=== PATIENT | male | born 1950 | race Caucasian/White ===

== ENCOUNTER 2021-03-05 21:05 | Observation (INO) | payer MEDICARE, BC ==
[~2021-03-05] VITALS: Ht 172.7 cm; Wt 92.8 kg
[~2021-03-05 21:05] MED LIST: ACYCLOVIR200 MG PO; BAYER CHEWABLE81 MG PO; CRESTOR40 MG PO; GABAPENTIN300 MG PO; LEVOTHYROXINE125 MC1 PO; NITROSTAT0.4 MG PO; OXYCODONE HCL5 MG PO; SENNA LAX8.6 MG PO; XARELTO10 MG PO
--- OUTSIDE RECORDS SUMMARY | 2021-03-05 21:08 | XMS ---
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 ERoss VISIT COUNT (12 MO.) 1 JAZMINE Morrell TOTAL 1 NOTE: Visits indicate total known visits. ED/UCC VISIT TRACKING (12 MO.) 03/05/2021 21:05 JAZMINE Gonzales OR TYPE: Emergency COMPLAINT: - DIZZINESS INPATIENT VISIT TRACKING (12 MO.) No inpatient visits to display in this time frame [email or web address]
[2021-03-05] MEDS ORDERED: PHENAZOPYRIDIN100 MG PO (21:31)
[2021-03-05] MEDS ORDERED: CEPHALEXIN500 M1 PO (21:31)
--- NOTE | 2021-03-06 01:30 | NUR ---
PT TO ROOM 123 @ 0015 WITH COLD SAW OPERATOR VIA STRETCHER. PT ABLE TO MOVE SELF FROM STRETCHER TO BED. ORDERS RECEIVED. ALERT AND ORIENTED. TELE #5 PLACED. SR. PT DENIES DIZZINESS OR LIGHTHEADEDNESS. RECENT RTK REPLACEMENT (03/04) WITH DR. ANTONY. DRESSING TO RIGHT KNEE INTACT WITH SEROSANG DRAINAGE. ON-Q PUMP IN PLACE AT 6ML/HR. CMS INTACT. TEDS IN PLACE BILAT. ICE TO RIGHT KNEE. PT REPORTS KNEE PAIN IS TOLERABLE. DENIES NAUSEA. PT REQUESTING HOME MEDS FOR URINARY DISCOMFORT. TELEPHONE ORDERS RECEIVED FROM OXANA FREEMAN VERIFIED WITH READ BACK METHOD. 2 PERSON SBA TO BS TO ATTEMPT BM WITH NO SUCCESS. PT DENIES FEELING DIZZY OR LIGHTHEADED WITH TRANSFER. BACK TO BED, SULLY WELL. PT ORIENTED TO ROOM AND NURSE CALL LIGHT. PT VERBALIZES UNDERSTANDING. DENIES FURTHER NEEDS AT THIS TIME. CALL LIGHT IN REACH. BED ALARM FOR SAFETY.
--- NOTE | 2021-03-06 03:02 | NUR ---
PT RESTING IN BED WITH EYES CLOSED. RESPIRATIONS EVEN. TELE #5. SR. HR 60'S.
--- NOTE | 2021-03-06 05:28 | NUR ---
VS AND I &O COMPLETE. SCHEDULED MEDS ADMINISTERED PER EMAR. TELE #5. SR. HR 60'S. PT DENIES FEELING DIZZY OR LIGHTHEADED. REPORTS PAIN IN RIGHT KNEE TOLERABLE. FRESH ICE TO RIGHT KNEE. NO FURTHER NEEDS AT THIS TIME. CALL LIGHT IN REACH.
--- NOTE | 2021-03-06 07:40 | NUR ---
REPORT RECIEVED. PT IN BED. WAKES TO NURSE WALKING IN ROOM. WATER REFRESHED. CALL LIGHT IN REACH. DENEIS NEEDS.
--- NOTE | 2021-03-06 09:02 | NUR ---
THIS MANAGER TECHNICAL SUPPORT GAVE PT TWO ICE PACKS AND SALT WATER TO RINSE MOUTH OUT WITH PER PT REQUEST. PT INDEPENDENT WITH ORAL CARE. CALL LIGHT WITHIN REACH. NO FURTHER NEEDS AT THIS TIME.
--- NOTE | 2021-03-06 09:57 | NUR ---
DR ANTONY IN TO ROUND. DISCUSSED PLAN OF CARE WITH VERBAL ORDERS START KEFLEX 500MG BID, OXYCODONE 5MG Q4P AND SENNO DAILY FOR CONSTIPATION. ORDERS PLACED.
--- NOTE | 2021-03-06 12:00 | NUR ---
PT UP IN CHAIR FOR LUNCH. PT IS STAND BY. NO ASSISTANCE NEEDED. PAIN 1/10 WHILE SITTING. 8/10 WITH ACTIVITY. PT EDUCATED ON PAIN MANAGEMENT. PT AGREEEABLE TO TAKE PAIN MEDS BEFORE NEXT PHYSICAL THERAPY APPOINTMENT. CALL LIGHT IN REACH. WATER REFRESHED.
--- NOTE | 2021-03-06 13:33 | NUR ---
PT UP TO BATHROOM FOR ORAL CARE. PT IS INDEPENDENT WITH FWW. PT IS STEADY AND CONFIDENT WITH TRANSFER AND AMBULATION. PT USED BSC IN BATHROOM AND WILL CALL FOR SBA BACK TO BED. CALL LIGHT WITHIN REACH. NO FURTHER NEEDS AT THIS TIME.
--- NOTE | 2021-03-06 14:19 | NUR ---
PT UP TO BATHROOM TO ATTEMPT TO HAVE BM. PT UNSUCCESSFUL. ABLULATED BACK TO BED. LAYED DOWN AND LIFTED LEG IN BED WITH NO HELP. CALL LIGHT IN REACH. DENEIS NEEDS.
[2021-03-06] MEDS ORDERED: ASPIR-TRIN325 MG PO (14:39)
--- NOTE | 2021-03-06 14:41 | NUR ---
MED REC COMPLETED BY PHARMACY
--- NOTE | 2021-03-06 15:16 | NUR ---
ROUNDED ON PT TO PRE-MEDICATE FOR PHYSICAL THERAPY. DENEIS FURTHER NEEDS. CALL LIGHT IN REACH.
--- NOTE | 2021-03-06 16:40 | NUR ---
Spoke with pt and his exwife, Nova. Pt came to [place] for surgery from [place], [place]. He will stay until he is well enough to drive himself home. He is staying in [facility] guest house. She will assist him as needed and provide his meals and shopping. He has a walker and denies other needs. Pt was working with PT and was able to walk in the [place]. States walk went well when he returned. Plan is home with exwife on dc denies other needs. Pt has a pcp in [facility] Kiesha Ma at [facility].
--- NOTE | 2021-03-06 17:57 | NUR ---
OXANA VELASQUEZ CALLED AND UPDATED ON PT STATUS AND HOW PHYSICAL THERAPY WENT. PHYSICAL THERAPY RECOMENDS PT STAY ONE MORE DAY FOR THERAPY. PA AGREEABLE. ORDER RECEIVED TO ADMISNTER ONE TIME DOSE OF XARELTO FOR TONIGHT. NO OTHERN ORDERS.
--- NOTE | 2021-03-06 19:30 | NUR ---
SHIFT REPORT RECEIVED FROM CHECO MAJOR. PT RESTING IN BED, ON-Q @ 6ML, ACTICOAT INPLACE WITH SHADOWING. NO NEEDS AT THIS TIME. CALL LIGHT IN REACH.
--- NOTE | 2021-03-06 21:14 | NUR ---
@2100 PT CALLED, NEEDED TO USE BATHROOM, SENSE OF URGENCY, USED URNIAL IN BED, HAD INCONT. PRIOR TO THAT. PLAN FOR PT TO USE URINAL DURING NIGHT DUE TO HIS "OLD MAN BLADDER" HE CALLED IT, STREAM STARTS BEFORE HE MAKES IT. UP TO CHAIR AT BEDSIDE, PT DID GET HIMSELF OUT OF BED SLOWLY, MOANING AND GROANING. BED MADE. WANTED TO WALK. AMBULATED SLOWLY WITH FWW FROM ROOM 123, TO ROOM 125 AND BACK TO HIS ROOM. ABLE TO GET SELF BACK INTO BED AND ADJUSTED. PT LIFTED HIS LEG WITH HIS LEFT LEG FOR THE TOWEL ROLL TO BE PLACED UNDER HIS RIGHT ANKLE. PT PRIMARY RN INTO ROOM FOR NIGHT ASSESSMENT. FRESH BAGS OF ICE BROUGHT TO PT, CLEAN GOWN AND DISPOSABLE UNDERWEAR GIVEN PRIOR TO GETTING INTO BED.
--- NOTE | 2021-03-06 21:40 | NUR ---
ASSESSMENT, VS AND I&O COMPLETED. GCS 15, A&O X4. LUNGS CLEAR, HEART TONES REGULAR. SCHEDULED MEDS PROVIDED. IV WNL, CDI, FLUSHED WELL. RIGHT KNEE HAS GENERALIZED EDEMA, NO PAIN AT REST, ACTICOAT ABOUR 50% SHADOWING WITH ABD ON TOP AND AN JAMESON WRAP. ON-Q @ 6ML. CMS INTACT. ABD SOFT, NONTENDER, BOWEL TONES ACTIVE. NO OTHER NEEDS AT THIS TIME. CALL LIGHT IN REACH.
--- NOTE | 2021-03-06 23:07 | NUR ---
pt up to br with rn, large incot. of urine. brief changed, brandy hoschet changed per rn. pt back in bed, ice applied. no further assistance needed at this time.
--- NOTE | 2021-03-07 | NUR ---
PT RESTING IN BED. HR SR @ 69. CALL LIGHT IN REACH.
--- NOTE | 2021-03-07 00:58 | NUR ---
PT CALLS FOR NEW BRIEF. URINAL EMPTIED. HIGH SCHOOL SOCIAL STUDIES TEACHER IN ROOM TO PROVIDE ICE PACKS.
--- NOTE | 2021-03-07 01:06 | NUR ---
PROVIDED PT WITH FRESH ICE PACKS AND WARM BLANKETS. NO FURTHER ASSISTNACE NEEDED AT THIS TIME
--- NOTE | 2021-03-07 02:56 | NUR ---
PT RESTING IN BED. CALL LIGHT IN REACH.
--- NOTE | 2021-03-07 04:30 | NUR ---
TELE BATTERY CHANGED. PT HAS RED AREA ON BOTTOM OF RIGHT HEEL, ALLEVYN APPLIED. IV WNL. PAIN /, DENIES NEED FOR PAIN INTERVENTION. ASSESSMENT COMPLETED. DRESSING UNCHANGED. ON-Q @ 6ML. GENERALIZED EDEMA AT KNEE. URINAL EMPTIED, CLEAR YELLOW OUTPUT. NO OTHER NEEDS. CALL LIGHT IN REACH.
--- NOTE | 2021-03-07 06:28 | NUR ---
VS AND I&O COMPLETED. PT DENIES PAIN AT REST. RIGHT FOOT REPOSITIONED TO FLOAT AT ANKLE. ICE WATER AND TEA PROVIDED.
--- NOTE | 2021-03-07 09:15 | NUR ---
in to check on pt, medications and assessment due. pt alert and oreitned per baseline. reports pain /10, pre-medicatited for PT this am at 1000. pupils ropund and reactive. bt x 4, abd non-tender. denies nausea, vomining, and diarrhea. iv to left AC, leaking. IV removed at this time by MORIAH Sanders.radial and pedial pulses strong and equal bilaterally. right knee surgical site unchanged at this time. pt continues to have on-Q pump in place running 6mL/Hr. no other concerns or requests at this time. bed rails x 2 up. call light in reach.
[2021-03-07] MEDS ORDERED: GABAPENTIN100 MG PO (10:32)
[2021-03-07] MEDS ORDERED: NEURONTIN300 MG PO (10:36)
--- NOTE | 2021-03-07 10:45 | NUR ---
pt up ambulating in hallway with walker with physical therapy at this time.
--- NOTE | 2021-03-07 11:35 | NUR ---
OXANA Godoy in with pt. ON-Q bolus given by PA and then pulled. covered with allyven, abd pressure dressing and wrapped with elias wrapped. pt reports pain after therapy 05/06. dredding to knee remains in tact, to be removed at f/u appt. no other concerns or requests at this time. bed rrails x 2 up, call light in reach.
--- NOTE | 2021-03-07 11:50 | NUR ---
Spoke with Hang. He is walking with PT. States he feels well and is able to walk. Plans on dc to home with exwife today.
--- NOTE | 2021-03-07 12:24 | NUR ---
IN TO CHECK ON PT, THIS NURSE DISCUSSED DISCHARGE INSTRUCTIONS WITH PT. PT VERBALIZED UNDERSTANDING, NO QUESTIONS AT THIS TIME. DRESSING TO PREVIOUS on-q PLACEMENT SITE CHANGED R/T DRESSING SATURATION. VS OBTAINED, WNL. TELE REMOVED. PT SITTING UP IN BED EATING LUNCH AT THIS TIME. FAMILIY IN ROOM AT BEDSIDE AT THIS TIME. NO OTHER CONCERNS OR REQUESTS AT THIS. CALL LIGHT IN REACH.
--- NOTE | 2021-03-07 12:45 | NUR ---
PT DISCHARGED AT THISTIME. PT LEFT ACCOMPANIED BY EX-. PT HAD ALL PERSOANL BELONGINGS ON LEAVING FACILITY. PT DISCHARGE INSTRUCTIONS DISCUSSED PRIOR TO LEAVING, PT VERBALIZED UNDERSTANDING. PT LEFT VIA WC. VS OBTAINED PRIOR TO LEAVING. I AND O'S DOCUMENTED. IV REMOVED THIS AM WITHOUT COMPLCIATIONS.
--- NOTE | 2021-03-07 13:01 | NUR ---
OXANA NAYLOR INQUIRED TO WHETHER I HAD VISITED WITH PTD AND TO GIVE HIM ENCOURAGEMENT. HE WAS IN HALLWAY WORKING WITH Cliff HUNT. CONNECTED WITH PT, HE ACKNOWLEDGED. WILL CONTINUE TO FOLLOW
--- NOTE | 2021-03-07 21:22 | EKG ---
[facility] [address] [facility] [place] [address] Signed Normal sinus rhythm Normal ECG When compared with ECG of 21-DEC-2020 09:48, premature atrial complexes are no longer present Confirmed by BABAR MARIA DO ([id number]) on 03/07/2021 9:22:04 PM Electronically Signed By: BABAR MARIA DO 03/07/212121 PATIENT NAME: MOLLY JUAREZ Electrocardiogram DATE OF : 46 PHYSICIAN: BABAR MARIA DO REPORT #: [id number] REPORT IS CONFIDENTIAL AND NOT TO BE RELEASED WITHOUT AUTHORIZATION
== END 2021-03-07 12:45 | disposition home or self-care (01) ==
LOC: ED 21:05 → MS 21:06
PROVIDERS: ADMIT Specialist; ATTEND Specialist
DX: R55 Syncope and collapse (principal); K59.00 Constipation, unspecified; T40.605A Adverse effect of unspecified narcotics, initial encounter; Z96.651 Presence of right artificial knee joint; Z79.01 Long term (current) use of anticoagulants; Z20.822 Contact with and (suspected) exposure to COVID-19
CPT/HCPCS: 80053; 81001; 83735; 84484; 85025; 93005; 93010; 97110; 97116; 97162; C9803; G0378; J7030; U0003

== ENCOUNTER 2022-02-03 08:31 | Day surgery (SDC) | payer MEDICARE, BC ==
[~2022-02-03] VITALS: Ht 172.7 cm; Wt 97.7 kg
[~2022-02-03 08:31] MED LIST changes: +ADULT LOW DOSE81 MG PO; +ASPIR-TRIN325 MG PO; +CEPHALEXIN500 M1 PO; +GABAPENTIN100 MG PO; +NEURONTIN300 MG PO; +PHENAZOPYRIDIN100 MG PO
[2022-02-03] MEDS ORDERED: ACYCLOVIR200 MG PO (09:02)
--- NOTE | 2022-02-03 11:07 | NUR ---
CHG ORAL RINSE AND ALCOHOL NASAL SWAB COMPLETE.
[2022-02-03] MEDS ORDERED: OXYCODONE HCL5 MG PO (13:25)
[2022-02-03] MEDS ORDERED: GABAPENTIN300 MG PO (13:25)
[2022-02-03] MEDS ORDERED: XARELTO10 MG PO (13:25)
[2022-02-03] MEDS ORDERED: CELECOXIB200 MG PO (13:25)
[2022-02-03] MEDS ORDERED: SENNA LAX8.6 MG PO (13:26)
--- NOTE | 2022-02-03 13:30 | NUR ---
02/03/22 1330 Trang Kirk 1320 PATIENT SLEEPING ON ARRIVAL TO PACU. DOES NOT OPEN EYES TO VERBAL STIMULI. RESP EVEN AND UNLABORED, MASK AT 6 LITERS. ONQ PUMP INFUSING AT 6ML PER HOUR, OKAY PER DR ANTONY. 1330 PATIENT AWAKE OFF/ON, BUT VERY DROWSY. SLEEPING WHEN NOT STIMULATED. RESP EVEN AND UNLABORED, MASK AT 6 LITERS, SATS 100%. MASK TURNED OFF. WHEN AWAKE PATIENT DENIES PAIN OR NAUSEA.
--- NOTE | 2022-02-03 13:54 | NUR ---
ICED WATER AND PUDDING GIVEN. CALL LIGHT WITHIN REACH. FAMILY AT BEDSIDE.
--- NOTE | 2022-02-03 14:22 | NUR ---
PATIENT TOLERATES PUDDING. SOUP ORDERED FROM DIETARY.
--- NOTE | 2022-02-03 15:41 | NUR ---
PATIENT REPORTS INCONTINENCE OF URINE. GOWN IS CHANGED. URINAL IS GIVEN. PATIENT IS LEAKING URINE INTO URINAL. PATIENT IS BLADDER SCANNED AND IS FOUND TO HAVE +[address] ANTONY ORDERS STRAIGHT CATHETER. 16 KAZAKH PEREIRA CATHETER IS INSERTED USING STERILE TECHNIQUE AND LIDOCAINE LUBRICANT. PATIENT TOLERATES THIS WELL. 1600 ML CLEAR, ORANGE URINE IS OBTAINED FROM STRAIGHT CATHETERIZATION. PATIENT REPORTS FEELING "MORE COMFORTABLE." PATIENT'S FRIEND REMAINS WITH HIM AT THE BEDSIDE. WARM BLANKET IS GIVEN. CALL LIGHT IS WITHIN REACH. MORE ICED WATER IS GIVEN.
--- NOTE | 2022-02-03 17:19 | NUR ---
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 HE IS ABLE TO VOID INDEPENDENTLY. DR. ANTONY GIVES THE OK TO DISCHARGE HIM HOME.
--- NOTE | 2022-02-03 17:51 | NUR ---
LE 1730: PT IS GIVEN VERBAL AND WRITTEN DC INSTRUCTIONS. HE VERBALIZES UNDERSTANDING. QUESTIONS ARE ASKED AND ANSWERED. HE IS TAKEN TO PERSONAL VEHICLE VIA WC, WHERE HE IS ABLE TO TRANSFER HIMSELF FROM WC TO PERSONAL VEHICLE.
--- NOTE | 2022-02-05 07:13 | OR ---
[facility] [address] [place] [address] Signed DATE OF OPERATION: 02/03/2022 SURGEON: Oksana Stover MD PREOPERATIVE DIAGNOSIS: Degenerative joint disease, left knee. POSTOPERATIVE DIAGNOSIS: Degenerative joint disease, left knee. PROCEDURE PERFORMED: Left total knee arthroplasty with Aristides. GIN INSPECTOR: None. ANESTHESIA: Spinal. BLOOD LOSS: 175 mL. IMPLANTS: [place] Triathlon size 6, 10 mm polyethylene, 38 mm patella. 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 He had undergone right total knee with good results, wished to proceed with a left. Risks, benefits, and alternatives were discussed at length and he understood and wished to proceed. PROCEDURE IN DETAIL: Once consent was obtained, he was taken to the operating room and after adequate anesthesia was placed on operating table. All downside pressure points well padded. Hip bump was placed and the leg was prepped and draped in a standard sterile fashion. Standard anterior approach through a straight incision was taken through skin and subcutaneous tissue. A mid vastus arthrotomy was performed. The MCL was elevated around posteriorly as far as we could go. He had fairly extensive varus deformity. The infrapatellar fat pad was excised. The ACL was excised and the PCL was found to be intact. The knee was flexed. The computer ray and checkpoint were placed in the medial Electronically Signed By: OKSANA STOVER MD 02/05/22 0713 PATIENT NAME: HANG JUAREZ OPERATIVE REPORT DATE OF : 46 REPORT #: [id number] PHYSICIAN: OKSANA STOVER MD PCP: NO PRIMARY CARE PHYSICIAN REPORT IS CONFIDENTIAL AND NOT TO BE RELEASED WITHOUT AUTHORIZATION [facility] [address] [place], [place] [address] Signed femoral condyle and in the proximal tibia. The leg was then registered with the computer. The varus valgus testing was undertaken after localization of all of the fine anatomic points of the knee. The tibia was placed 2 degrees more varus to equal the balance. Once this was accomplished, the robot was brought in and four straight cuts were made with care taken to protect the patellar tendon and MCL. 2 angle cuts were made and the bone piece was removed as were any remaining osteophytes. There were fairly extensive osteophytes. Posterior osteophytes were removed off the femur and tibia. The trials were placed initially with a 9 mm and a 10 mm trial. The knee was taken through range of motion and found to be stable. The patella was cut sized and drilled for a 38 mm patella. The distal femoral drill holes were made. The proximal tibia was finished using the keel punch. The knee was pulse lavaged. The tibia was then impacted into position and removing the impactor from the tibia. There was noted to be a small piece of old dried cement. This was removed and the tibia was thoroughly cleansed with hydrogen peroxide followed by an IrriSept soak. It was then copiously irrigated. It was felt that this was a very tiny piece of cement that was likely sterile from the sterile processing. The polyethylene was snapped into position. The femur was impacted. The knee was then extended and nicely loaded. All of the patella was clamped. Once that was done, the patella was noted to track well. The On-Q pain pump was percutaneously placed into the adductor canal from the suprapatellar pouch. The arthrotomy was then closed using #2 Stratafix. The periarticular soft tissues were injected with 100 mL ropivacaine and Toradol mixture. The subcutaneous tissue was closed with 0-Quill and the skin with cintia. Wound was dressed with an Acticoat 7 dressing, ABD, and Efrain wrap. He tolerated the procedure well. All sponge, needle, and instrument counts were correct. Oksana Stover MD BA/MODL /[id number] Copies: ~ Electronically Signed By: OKSANA STOVER MD 02/05/22 0713 PATIENT NAME: HANG JUAREZ OPERATIVE REPORT DATE OF : 46 REPORT #: [id number] PHYSICIAN: OKSANA STOVER MD PCP: NO PRIMARY CARE PHYSICIAN REPORT IS CONFIDENTIAL AND NOT TO BE RELEASED WITHOUT AUTHORIZATION
== END 2022-02-03 17:40 | disposition home or self-care (01) ==
LOC: DS 08:31
PROVIDERS: ATTEND Specialist
PROC: 0SRD06Z Replacement of Left Knee Joint with Oxidized Zirconium on Polyethylene Synthetic Substitute, Open Approach (ICD-10-PCS; principal; 2022-02-03 12:00)
DX: M17.12 Unilateral primary osteoarthritis, left knee (principal)
CPT/HCPCS: 64447; 76942; 97161; A9270; C1713; C1776; J0690; J1100; J1885; J2001; J2250; J2405; J2704; J2795; J3010; J7121

== ENCOUNTER 2022-02-05 08:20 | Emergency (ER) | payer MEDICARE, BC ==
[~2022-02-05] VITALS: Ht 172.7 cm; Wt 97.5 kg
[~2022-02-05 08:20] MED LIST changes: +CELECOXIB200 MG PO
--- OUTSIDE RECORDS SUMMARY | 2022-02-05 08:22 | XMS ---
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 ERoss VISIT COUNT (12 MO.) 2 JAZMINE Morrell TOTAL 2 NOTE: Visits indicate total known visits. 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
--- NOTE | 2022-02-05 20:51 | EKG ---
[facility] [address] [facility] [place], [place] [address] Signed Normal sinus rhythm Normal ECG When compared with ECG of 05-FEB-2022 08:21, (Unconfirmed) No significant change was found Confirmed by DYLAN MENG MD ([id number]) on 02/05/2022 8:51:29 PM Electronically Signed By: DYLAN MENG MD 02/05/222050 PATIENT NAME: ANNMOLLY LELO Electrocardiogram DATE OF : 46 PHYSICIAN: DYLAN MENG MD REPORT #: [id number] REPORT IS CONFIDENTIAL AND NOT TO BE RELEASED WITHOUT AUTHORIZATION
== END 2022-02-05 11:27 | disposition home or self-care (01) ==
LOC: ED 08:20
DX: R55 Syncope and collapse (principal); Z79.899 Other long term (current) drug therapy; Z79.82 Long term (current) use of aspirin
CPT/HCPCS: 36415; 80053; 84484; 85025; 85379; 93005; 93010; 93971; 96360; 99284-25; J7030

== ENCOUNTER 2022-02-05 12:16 | Observation (INO) | payer MEDICARE, BC ==
[~2022-02-05] VITALS: Ht 172.7 cm; Wt 100.0 kg
--- OUTSIDE RECORDS SUMMARY | 2022-02-05 12:18 | XMS ---
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 E.Jose VISIT COUNT (12 MO.) 3 [facility] TOTAL 3 NOTE: Visits indicate total known visits. ED/UCC VISIT TRACKING (12 MO.) 02/05/2022 12:16 JAZMINE Gonzales [place] TYPE: Emergency COMPLAINT: - DIZZINESS 02/05/2022 08:[address] 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
--- NOTE | 2022-02-05 15:35 | NUR ---
This nurse brings patient from ED via stretcher with chief legal officer in place, no events noted during transfer to room 118. Patient slides from stretcher to bed. parts cataloger placed on patient, vitals obtained, assessment completed. States pain is currently tolerable, pain pump to left knee remains in place. Ice to left knee and heel elevated on rolled towel. Patient denies dizziness and lightheadedness. Educated credit administration officer light use. continent of urine using urinal. Ice water provided at this time. Call light in reach, bed rails up X2.
--- NOTE | 2022-02-05 16:35 | NUR ---
Attempt to contact Dr. Stover to request diet order and review current orders, no answer at this time. Will attempt to contact again.
--- NOTE | 2022-02-05 17:49 | NUR ---
medications reconciled using pharmacy records and patient interview
--- NOTE | 2022-02-05 18:32 | NUR ---
LIA Norris, attempt to obtain orthostatic vitals. Patient becomes lightheaded and feels "woozy." Becomes diaphoretic while standing. Moving frequently while standing, blood pressure cuff unable to obtain blood pressure until patient is lying back in bed. Vitals machine says BP 53/35 MAP of 38. After patient lying in bed BP immediately repeated 127/51 MAP 69. Patient feeling better almost immediately after returning to bed.
--- NOTE | 2022-02-05 18:50 | NUR ---
Dr. Harper and OXANA Bauer, notified of orthostatic vitals. No new orders at this time, plan to obtain orthostatics again in the AM.
--- NOTE | 2022-02-05 19:08 | NUR ---
report from Loreta rn, pt in bed - used urinal 250 ml urine noted. denies dizzy or light headedness. denies pain at knee, iv fusing at this time.
--- NOTE | 2022-02-05 20:51 | EKG ---
[facility] [address] [place] [address] Signed Sinus bradycardia Otherwise normal ECG When compared with ECG of 05-MAR-2021 21:16, No significant change was found Confirmed by DYLAN MENG MD ([id number]) on 02/05/2022 8:50:46 PM Electronically Signed By: DYLAN MENG MD 02/05/222050 PATIENT NAME: MOLLY JUAREZ LELO Electrocardiogram DATE OF : 46 PHYSICIAN: DYLAN MENG MD REPORT #: [id number] REPORT IS CONFIDENTIAL AND NOT TO BE RELEASED WITHOUT AUTHORIZATION
--- NOTE | 2022-02-06 02:21 | NUR ---
in pt room for vitals and i/o's, void 650 urine clear yellow in urinal, water refilled, ice bag to knee refreshed left side. wilberto cdi, cms wnl. denies needs, call light in reach.
--- NOTE | 2022-02-06 05:26 | NUR ---
PT CALLED FOR IV OCCLUSION - RESTARTED PUMP - PO THYROID MED GIVEN WHILE AWAKE. DENIES NEEDS CALL LIGHT IN REACH .
--- NOTE | 2022-02-06 11:00 | NUR ---
STUDENT NURSE IN THE ROOM WITH PATIENT. PT IS SITTING IN CHAIR WATCHING TV WITH LEGS ELEVATED. PT ASSESSMENT DONE BY STUDENT NURSE. FULL BODY ASSESSMENT WNL WITH EXCEPTION OF WEAKER LEFT PEDAL PULSE ON POST-SURGICAL LEG. PT STATED THAT HIS BREAKFAST ORDER WAS MESSED UP CAUSING HIM TO NOT RECIEVE BREAKFAST, BUT THAT IT SHOULD BE ON THE WAY NOW. URINAL EMPTIED AND MEASUREMENT WAS WRITTEN ON BOARD. WHILE FINISHING ASSESSMENT PT RECIEVED BREAKFAST. PT REQUESTED THAT AFTER BREAKFAST HE WANTED TO PERFORM HIS ORAL HYGIENE. PT WAS TO PERFORM ORTHOSTATIC TEST BUT WE WAITED UNTIL AFTER HE FINISHED BREAKFAST. AFTER HE FINISHED HIS MEAL, STUDENT NURSE BACK IN ROOM TO PERFORM ORTHOSTATIC TEST. PT PERFORMED BETTER ON THIS ORTHOSTATIC TEST THAN ON PREVIOUS TWO. BP WAS 119/61 SITTING IN CHAIR, 117/76 AFTER STANDING FOR ONE MINUTE, AND 96/60 AFTER STANDING FOR THREE MORE MINUTES. PT REPORTED FEELING "A LITTLE SWEATY" WHILE STANDING WAITING FOR THREE MINUTE BP. AFTER THE LAST BP, PT SAT BACK IN CHAIR. PT THEN DESCRIBED TO US HIS SCALE FOR FEELING A SYNCOPE EPISODE COMING ON. HE DESCRIBED HIS FEELINGS FROM BEST TO WORST BEING "OKAY, SHAKY, WOOZY, DIZZY, AND PASSING OUT." HE STATED THAT DURING THIS TEST, HE WAS FEELING LIKE HE WAS "ALMOST TO SHAKY BUT NOT QUITE THERE." HE STATED THAT THIS WAS LOWER ON HIS SCALE THEN HE HAD BEEN FOR PREVIOUS TESTS STATING THAT HE WAS SHAKY TO WOOZY WITH THOSE. PT WAS CONTENT WITH POSITIVE PROGRESS. PT PROVIDED WITH TOOTHPASTE, TOOTHBRUSH, AND MORE WATER TO RINSE WITH. PT STATED HE HAS NO OTHER NEEDS AT THIS TIME. CALL LIGHT WITHIN REACH AND PT INFORMED TO CALL IT IF HE NEEDS ANYTHING. PT LEFT IN CHAIR WITH TV ON.
--- NOTE | 2022-02-06 11:30 | NUR ---
Spoke with pt and he has returned for his second knee replacement. Pt lives in [place], [place]. Prefers to come to [place] to Dr. Stover for surgery. Ex assists him and he stays until his knee has healed. Pt has all the DME he needs from his last knee surgery. Plans on dc to [place]wifes today after PT, if he tolerates well. Pt became lightheaded yesterday. Denies further needs.
--- NOTE | 2022-02-06 11:35 | NUR ---
INTO ROOM WITH NURSING STUDENTS, THIS BIGHT MAKER ASSISTED WITH USING DOPPLER TO ASSESS PEDAL PULSES. NOTED R PEDAL PULSE STRONGER THAN LEFT. THEN PREPARING PATIENT TO STAND FOR ORTHO VS, ASSESSED ON-Q PUMP NOTING DIAL TURNED TO 6, HOWEVER THE TUBING CLAMPED. NOTIFIED PRIMARY NURSE YESI, AND CHARGE NURSE. THEN UNCLAMPED ON-Q PUMP PER PRIMARY NURSES REQUEST, NOTING NO REASON FOR PUMP TO BE CLAMPED. PROVIDED EDUCATION TO PATIENT, WHO SELF DEMONSTRATED HOW ON-Q PUMP WORKS AND TO WATCH FOR CLAMP.
--- NOTE | 2022-02-06 11:36 | NUR ---
Patient sitting up in chair watching tv, no distress. Patient reports he feels better today, pain in left leg reported to be tolerable at this time. Patient denies nausea and or dizziness at this time. Patient has good po intake and adequate urine output. Encouraged patient to call if he has needs. Call light within reach.
--- NOTE | 2022-02-06 13:15 | NUR ---
Report from Zakia Machado RN. Patient sitting up in recliner, visitor in room. Informed of DC orders. States he would like to work with PT prior to leaving facility to ensure he feels ok. Denies other needs. Call light in reach.
--- NOTE | 2022-02-06 13:42 | NUR ---
STUDENT NURSE IN PATIENT ROOM. PATIENT IS SITTING IN CHAIR WITH LEGS ELEVATED WHILE VISITING WITH HIS EX-. PATIENT REQUESTED [employer] TO DO SELF TEETH AND MOUTH CLEANING. PT WAS PROVIDED WITH THE PRODUCTS AVAILABLE. WATER WAS FILLED AND PATIENT HAD NO OTHER REQUESTS. CALL LIGHT WITHIN REACH AND PT EDUCATED TO USE IT IF HE NEEDS ANYTHING.
--- NOTE | 2022-02-06 13:57 | NUR ---
PT IS SITTING UP IN CHAIR. VITALS AND I/O DOCUMANTED. PT HAS NO OTHER NEEDS AT THIS TIME. CALL LIGHT IS WITHIN REACH.
--- NOTE | 2022-02-06 15:15 | NUR ---
Worked with PT. States he feels steady and safe to discharge. States he knows he needs to move slow and take his time. Encouraged to continue to drink water and drinks like gatorade for electrolytes. States he continues to have issues with constipation. Encouraged used of miralax, senna and milk of mag for bowels. Informed him mag citrate may be used but cautiously with his issues with dehydration, encouraged to use previously discussed medications first. Verbalizes understanding.
--- NOTE | 2022-02-06 16:00 | NUR ---
STUDENT NURSE IN ROOM WITH NURSE AND MANAGER NC. PT READY TO DISCHARGE. EDUCATION PROVIDED TO PT. PT IS AWARE OF REASONS TO COME BACK TO THE HOSPITAL AND HOW TO CARE FOR HIMSELF WELL. EX IN ROOM ALSO LISTENING AND RESPONDING TO EDUCATION. PT TRANSFERED TO WHEEL CHAIR AND TAKEN DOWN STAIRS TO MEET EX TO GO BACK TO HER HOUSE TO RECOVER. PT FELT "READY TO BE DISCHARGED" AND DEMONSTRATED UNDERSTANDING ON HOW TO FOLLOW POST OP INSTRUCTIONS AND HOW TO REDUCE CHANCE OF [facility] EPISODES. PT DISCHARGED.
== END 2022-02-06 15:30 | disposition home or self-care (01) ==
LOC: ED 12:16 → MS 12:17
PROVIDERS: ADMIT Specialist; ATTEND Specialist
DX: R55 Syncope and collapse (principal); I25.10 Atherosclerotic heart disease of native coronary artery without angina pectoris; E78.00 Pure hypercholesterolemia, unspecified; I10 Essential (primary) hypertension; Z20.822 Contact with and (suspected) exposure to COVID-19
CPT/HCPCS: 36415; 71260; 74177; 80053; 81001; 83605; 84484; 85025; 87040; 87502; 93005; 93010; 97163; 99285-25; C9803; G0378; J3480; J7030; J7120; Q9967; U0003